=== PATIENT | male | born 1970 | race Hispanic/Latino ===

== ENCOUNTER 2019-03-08 06:58 | Day surgery (SDC) | payer BC ==
[2019-03-03 10:23] VITALS: BMI 23.0
[2019-03-08] MEDS ORDERED: Propofol 10 mg/ml Inj (20 ML) ONE ×4 (07:54→09:55)
[2019-03-08] MEDS ORDERED: Midazolam 2 MG/2 ML VIAL ONE (07:54)
[2019-03-08] MEDS ORDERED: Sodium Chloride 0.9% 1,000 ML IV SCH (10:30)
[2019-03-08 11:40] VITALS: BP 106/68; PULSE 41; RESP 16; TEMP 98; O2SAT 100
== END 2019-03-08 11:50 | disposition home or self-care (01) ==
LOC: ENDO 06:58
PROVIDERS: ATTEND Internal Medicine Gastroenterology
DX: K62.5 Hemorrhage of anus and rectum (principal); D12.4 Benign neoplasm of descending colon; K57.30 Diverticulosis of large intestine without perforation or abscess without bleeding; K64.8 Other hemorrhoids; Z80.0 Family history of malignant neoplasm of digestive organs
CPT/HCPCS: 45381; 45385; 88305; J0171; J2001; J2250; J2704; J7030; J7040